=== PATIENT | male | born 1990 | race Caucasian/White ===

== ENCOUNTER 2016-06-20 15:20 | Emergency (ER) | payer SELFPAY ==
[~2016-06-20] VITALS: Ht 190.5 cm; Wt 118.0 kg
[2016-06-20 15:22] VITALS: BP 166/87; PULSE 123; RESP 16; TEMP 97.9; O2SAT 96
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
[2016-06-20 15:48] VITALS: PULSE 109; RESP 18; O2SAT 95
[2016-06-20 16:05] LABS: AUTOMATED NEUTROPHIL # 7.2 TH/MM3 (1.8-7.7); BASOPHIL # 0.1 TH/MM3 (0-0.2); BASOPHIL % 0.8 % (0.0-2.0); EOSINOPHIL # 0.2 TH/MM3 (0-0.4); EOSINOPHIL % 1.5 % (0.0-4.0); HEMATOCRIT 48.1 % (39.0-51.0); HEMO FLAGS DIFF FINAL; LYMPH % 21.1 % (9.0-44.0); LYMPHOCYTE # 2.2 TH/MM3 (1.0-4.8); MEAN CELL VOLUME 90.8 FL (80.0-100.0); MEAN CORPUSCULAR HEMOGLOBIN 31.8 PG (27.0-34.0); MONO % 8.5 % (0.0-8.0); NEUT % 68.1 % (16.0-70.0); PLATELET COUNT 261 TH/MM3 (150-450); RED BLOOD COUNT 5.29 MIL/MM3 (4.50-5.90); RED CELL DISTRIBUTION WIDTH 12.6 % (11.6-17.2); WHITE BLOOD COUNT 10.6 TH/MM3 (4.0-11.0)
[2016-06-20 16:28] LABS: ANION GAP 10 MEQ/L (5-15)
[2016-06-20 16:46] LABS: ACETAMINOPHEN LESS THAN 2.0 MCG/ML (10.0-30.0); ALKALINE PHOSPHATASE 87 U/L (45-117); ALT (GPT) 36 U/L (12-78); AST (GOT) 28 U/L (15-37); BICARBONATE 23.3 MEQ/L (21.0-32.0); BLOOD UREA NITROGEN 11 MG/DL (7-18); CHLORIDE 104 MEQ/L (98-107); GLOMERULAR FILTRATION RATE 75 ML/MIN (>89); POTASSIUM 3.7 MEQ/L (3.5-5.1); SODIUM (NA) 137 MEQ/L (136-145); TOTAL BILIRUBIN ADULT 0.7 MG/DL (0.2-1.0)
[2016-06-20 17:42] LABS: AMPHETAMINE, URINE NEG (NEG); BARBITURATES, URINE NEG (NEG); COCAINE, URINE NEG (NEG)
[2016-06-20 18:17] VITALS: BP 130/69; PULSE 92; RESP 18; O2SAT 99
[2016-06-20 22:00] VITALS: BP 171/72; PULSE 105; RESP 18; O2SAT 97
== END 2016-06-21 03:11 ==
LOC: NEPE 15:20 → NEPJ 06-21 03:11
DX: R45.851 Suicidal ideations (principal); F12.90 Cannabis use, unspecified, uncomplicated
CPT/HCPCS: 80053; 80307; 85025; 99285